=== PATIENT | male | born 1945 | race Caucasian/White ===

== ENCOUNTER 2017-06-06 11:33 | Day surgery (SDC) | payer MEDICARE, OTHER ==
[~2017-06-06] VITALS: Ht 170.2 cm; Wt 65.8 kg
--- NOTE | ~2017-06-06 | EGD ---
EGD REPORT [facility] [address] [address] NAME: JEREMY SALVADOR : [birth year] STATUS : REG [facility] PAT#: [id number] AGE: 71 ADM/REG DATE : 06/06/17 MR#: [id number] REPORT SERV DATE: 06/06/17 DICTATED BY: MARILEE AMEZCUA DATE: 06/06/17 REPORT STATUS : Draft [facility]: [facility] DATE: 06/06/17 Pulmonology Patient Name: Jeremy Salvador Procedure Date: 06/06/2017 2:30 PM Date of : 1945 Attending MD: ADELE AMEZCUA MD Procedure Date No Time: 06/06/2017 Procedure: Navigational Bronchoscopy Indications: Additional tissue for clinical trial Providers: ADELE AMEZCUA MD Referring MD: NIA LEDESMA MD Medicines: Lidocaine 2% 20 mL; topical epinephrine 5 ml Complications: No immediate complications Procedure: Pre-Anesthesia Assessment: - ASA Grade Assessment: IV - A patient with severe systemic disease that is a constant threat to life. - A History and Physical has been performed. Patient meds and allergies have been reviewed. The risks and benefits of the procedure and the sedation options and risks were discussed with the patient. All questions were answered and informed consent was obtained. Patient identification and proposed procedure were verified prior to the procedure by the physician and the nurse in the pre-procedure area in the procedure room. Mental Status Examination: alert and oriented. Airway Examination: normal oropharyngeal airway. Respiratory Examination: poor air movement. CV Examination: normal and RRR, no murmurs, no S3 or S4. ASA Grade Assessment: IV - A patient with severe systemic disease that is a constant threat to life. After reviewing the risks and benefits, the patient was deemed in satisfactory condition to undergo the procedure. The anesthesia plan was to use general anesthesia. Immediately prior to administration of medications, the patient was re-assessed for adequacy to receive sedatives. The heart rate, respiratory rate, oxygen saturations, blood pressure, adequacy of pulmonary ventilation, and response to care were monitored throughout the procedure. The physical status of the patient was re-assessed after the procedure. After obtaining informed consent, the BF [id number] was introduced through the mouth, via the endotracheal tube (the patient was intubated for the procedure) and advanced to the tracheobronchial tree. the Bronchoscope was introduced through the mouth, via the endotracheal tube (the patient was intubated for the procedure) and EGD REPORT [address] [address] NAME: JEREMY SALVADOR : [birth year] STATUS : REG [facility] PAT#: [id number] AGE: 71 ADM/REG DATE : 06/06/17 MR#: [id number] REPORT SERV DATE: 06/06/17 DICTATED BY: MARILEE AMEZCUA DATE: 06/06/17 REPORT STATUS : Draft TRANSCRIBED BY: [facility] DATE: 06/06/17 advanced to the tracheobronchial tree. The procedure was accomplished without difficulty. The patient tolerated the procedure well. Findings: The endotracheal tube is in good position. The visualized portion of the trachea is of normal caliber. The fartun is sharp. The tracheobronchial tree was examined to at least the first subsegmental level. Bronchial mucosa is abnormally puckered in the RUL posterior subsegment. EBUS TBNA of lymph node level 11R x 3 passes for cytology Using [employer] Navigation software and superD planning software, peripheral probe EBUS 17s, and fluoroscopy, I performed the following biopsies: RUL mass transbronchial needle aspirates x 6 passes for cytology RUL mass transbronchial brush biopsy x 1 pass for cytology RUL mass transbronchial forcep biopsies x 6 passes for histopathology Impression: Rapid On-Site Evaluation (DHIRAJ): Preliminary cytology is POSITIVE for malignancy (final results are pending). Core biopsies were obtained using a 19 g needle as well as forcep biopsies. Recommendation: - Await test results. - Follow up with referring physician as previously scheduled. Attending Participation: I personally performed the entire procedure. ADELE AMEZCUA MD 06/06/2017 3:46 PM This report has been signed electronically. Number of Addenda: 0 Note Initiated On: 06/06/2017 2:30 PM [address] [address]
--- NOTE | ~2017-06-06 | CN ---
Consultation Report [facility] [address] [place] [address] NAME: JEREMY SALVADOR : [birth year] STATUS : [facility]#: [id number] AGE: 71 ADM/REG DATE : 06/06/17 MR#: [id number] REPORT SERV DATE: 06/08/17 DICTATED BY: TISHA AMEZCUA DATE: 06/08/17 REPORT STATUS : Draft TRANSCRIBED BY: MODL DATE: 06/08/17 DATE OF CONSULTATION: 06/06/[address] Naik: Thank you for requesting my opinion regarding evaluation and management of Mr. Jeremy Salvador's need for an additional tissue for oncologic study drug for a squamous cell carcinoma. Mr. Jeremy Salvador is an extremely pleasant 71-year-old gentleman with a significant past medical history of stage IV squamous cell carcinoma, status post [id number] clinical trial from 10/25/2016 to 01/17/2017, status post 4 cycles with progression on CT scan on 04/2017, who presents to [facility] for evaluation for biopsy. The patient states that he has had chronic shortness of breath and has tolerated the chemotherapy quite well. He states that with the exception of some hair loss and fatigue, he states that his shortness of breath is mild to moderate in nature, well localized to the chest, nonradiating with no significant alleviating or exacerbating factors. REVIEW OF SYSTEMS: A detailed 14-point review of systems was completed. Pertinent positives and negatives are listed above. ALLERGIES: NO KNOWN DRUG ALLERGIES. HOME MEDICATIONS: Reviewed and located in the paper chart. PAST MEDICAL HISTORY: 1. Emphysema. 2. Unspecified disorder of the circulatory system. 3. COPD. 4. Hypertension. 5. Chronic pain. PAST SURGICAL HISTORY: Previous EBUS bronchoscopy by me on 09/24/2015. SOCIAL HISTORY: The patient currently smokes about half pack per day and has heavy tobacco history. He denies any significant alcohol or illicit drug abuse. FAMILY HISTORY: No history of known lung cancer. PHYSICAL EXAMINATION: VITAL SIGNS: Were reviewed and located in the paper chart. GENERAL: No acute distress. Able to communicate in full paragraphs at a time. HEENT: Normocephalic and atraumatic. Pupils are equal, round, and reactive to light and accommodation. Posterior oropharynx is clear. Consultation Report [facility] [address] [place]. [address] NAME: JEREMY SALVADOR : [birth year] STATUS : [facility]#: [id number] AGE: 71 ADM/REG DATE : 06/06/17 MR#: [id number] REPORT SERV DATE: 06/08/17 DICTATED BY: TISHA AMEZCUA DATE: 06/08/17 REPORT STATUS : Draft TRANSCRIBED BY: MODL DATE: 06/08/17 NECK: No JVD. No LAD. Trachea midline. CARDIOVASCULAR: Regular rate and rhythm. S1 and S2 present. LUNGS: Clear to auscultation bilaterally. ABDOMEN: Nontender, nondistended. Soft. Positive bowel sounds. EXTREMITIES: No clubbing, cyanosis, or edema. SKIN: No new rashes, lesions, or ulcers. PSYCHIATRIC: Alert and oriented x3. Able to communicate in full paragraphs at a time. DATA: CT scan of the chest performed at [facility] on 05/22/2017, was personally reviewed by me and I agree with the following interpretation: 1. Enlarging masslike consolidation in the right upper lobe. 2. Diminishing ill-defined consolidation of the left upper lobe. ASSESSMENT AND PLAN: Mr. Jeremy Salvador is an extremely pleasant 71-year-old gentleman with significant past medical history of stage IV lung cancer with progression. The patient is being evaluated for a new clinical trial for CTV165. I have been asked to evaluate him for potential biopsy to obtain additional tissue. I discussed in detail options including thoracic surgical biopsy, CT-guided needle biopsy, or EBUS and navigation bronchoscopy. After careful discussion of the risks, benefits, and alternatives to each of these options, we agreed to proceed with EBUS and navigation bronchoscopy. The patient also consented to the 3D fluoroscopic clinical trial with body vision. The patient is aware that EBUS and navigation bronchoscopy is associated with potential life-threatening risks, including lung collapse, respiratory failure, and even . RECOMMENDATIONS: A summary of my recommendations are as follows: 1. Proceed with EBUS and navigation bronchoscopy. 2. Patient consented to the body vision 3D fluoroscopic trial. 3. Further recommendations to be outlined in the operative report. 4. Thank you for allowing me to participate in Mr. Jeremy Salvador's care. GINO/MODL Tisha Amezcua M.D. / [id number] CC: Jaya Bennett M.D.
[~2017-06-06 11:33] MED LIST: ASAB PO; BREO ELLIPTA INH; CARDURA8 MG PO; COMBIVENT INH; COMBIVENT RESPIM4 GM INH; FISH-EPA1000 MG PO; HCTZ25B PO; HYDROCHLOROT25 MG PO; ILA60 PO; INDE160LA PO; KLOR-CON M2020 MEQ PO; LEXAPRO10 PO; LORTAB 5 PO; LOTREL1 CA4 PO; NORCO1 TA2 PO; OXYCON10 PO; PLAVIX PO; PROAIR HFA INH
[2017-06-06 12:01] LABS: MEAN CORPUS HGB CONC 31.6 g/dL (32.0-36.0); MEAN PLATELET VOLUME 8.5 fL (9.2-13.0); PLATELET COUNT 287 10/3/uL (150-400); RBC DISTRIBUTION WIDTH 15.4 % (12.0-16.0); RED CELL COUNT 3.95 10/6/uL (4.7-6.1); WHITE BLOOD CELLS 9.8 10/3/uL (4.5-10.5)
[2017-06-06 12:02] LABS: HEMATOCRIT 34.5 % (40.0-51.0); HEMOGLOBIN 10.9 g/dL (13.6-17.8); MANUAL DIFF YES %; MEAN CORPUSCULAR HEMOGLOB 27.6 pg (26.0-34.0); MEAN CORPUSCULAR VOLUME 87.3 fL (80-100)
[2017-06-06 12:06] LABS: PARTIAL THROMBO TIME 29.3 SEC (22.5-37.2); PROTIME (NOT ORD) 13.2 SEC (12.0-14.5)
[2017-06-06 12:14] LABS: CHLORIDE, SERUM 96 MMOL/L (96-112); CO2 (CARBON DIOXIDE) 30 MMOL/L (24-34); CREATININE 0.79 MG/DL (0.70-1.30); GFR AFRICAN AMERICAN 105 ML/MIN (>=60); GFR NON AFRICAN AMERICAN 91 ML/MIN (>=60); GLUCOSE, SERUM 107 MG/DL (60-99); POTASSIUM, SERUM 4.2 MMOL/L (3.5-5.3)
[2017-06-06 12:15] LABS: BUN (BLOOD UREA NITROGEN) 7 MG/DL (6-23); SODIUM, SERUM 133 MMOL/L (135-148)
[2017-06-06 12:37] LABS: BAND NEUTROPHILS 1 %; LYMPHOCYTES 24 %; LYMPHOCYTES ABSOLUTE (CALC) 2.35 10/3/uL (0.67-4.30); METAMYELOCYTES 1 %; MONOCYTES 16 %; MONOCYTES ABSOLUTE (CALC) 1.57 10/3/uL (0.21-1.20); MYELOCYTES 1 %; NEUTROPHILS ABSOLUTE (CALC) 5.68 10/3/uL (2.02-8.40); SEGMENTED NEUTROPHIL (0) 57 %; TOTAL NUCLEATED CELLS 100
[2017-06-06 12:38] LABS: GIANT PLATELET RARE; PLATELET ESTIMATE ADQ (ADEQUATE); RBC MORPHOLOGY NORM (NORMAL)
== END 2017-06-06 18:04 | disposition home or self-care (01) ==
LOC: DMU 11:33
PROVIDERS: Internal Medicine
PROC: 07974ZX Drainage of Thorax Lymphatic, Percutaneous Endoscopic Approach, Diagnostic (ICD-10-PCS; principal; 2017-06-06 12:30)
PROC: BB4BZZZ Ultrasonography of Pleura (ICD-10-PCS; 2017-06-06 12:30)
PROC: 0BBC8ZX Excision of Right Upper Lung Lobe, Via Natural or Artificial Opening Endoscopic, Diagnostic (ICD-10-PCS; 2017-06-06 12:30)
DX: C34.11 Malignant neoplasm of upper lobe, right bronchus or lung (principal); J44.9 Chronic obstructive pulmonary disease, unspecified; I10 Essential (primary) hypertension; I73.9 Peripheral vascular disease, unspecified; G89.29 Other chronic pain; F17.210 Nicotine dependence, cigarettes, uncomplicated; H26.9 Unspecified cataract; D64.9 Anemia, unspecified; Z95.820 Peripheral vascular angioplasty status with implants and grafts; Z92.21 Personal history of antineoplastic chemotherapy; Z98.1 Arthrodesis status; Z79.82 Long term (current) use of aspirin; Z79.02 Long term (current) use of antithrombotics/antiplatelets; Z79.899 Other long term (current) drug therapy; Z98.890 Other specified postprocedural states
CPT/HCPCS: 71010; 80048; 85025; 85610; 85730; 88112; 88172; 88173; 88305; 93005; 94640; A9270-GY; C1769; J2405; J3010